=== PATIENT | female | born 1975 | race Caucasian/White ===

== ENCOUNTER 2019-07-24 15:36 | Emergency (ER) | payer OTHER ==
[~2019-07-24 15:36] MED LIST: PANTOPRAZOLE SO40 MG PO
--- OUTSIDE RECORDS SUMMARY | 2019-07-24 15:39 | XMS REPORT ---
Author Author Alvaro Dias Organization [employer] Address Unknown Phone Unavailable Care Team Providers Care Research Quality Assurance Specialist Name Role Phone Alvaro Dias CP Unavailable Allergies, Adverse Reactions, Alerts Substance Reaction Event Type N.K.D.A. 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 pylori] infection 041.86 Oct 18, 2013 Active Problem Bronchial spasms 519.11 January 09, 2014 Active Problem Abdominal pain, epigastric 789.06 Dec 05, 2013 Active Medications Medication Code System Code Instructions Start Date End Date Status Dosage Vitamin D (Ergocalciferol) [facility] 11398872517 [id number] UNIT Orally once per week January 09, 2019 April 09, 2019 Active 1 capsule Propranolol HCl [facility] 46756417433 10 mg Orally twice a day (bid) January 09, 2019 Active 1 tablet on an empty stomach Vital Signs Date/Time: January 09, 2019 Weight 169 lbs Height 62 in Temperature 98.7 F Cardiac Monitoring Heart Rate 61 /min BMI 30.91 Index Results No Known Results Summary Purpose [employer] Submission
--- OUTSIDE RECORDS SUMMARY | 2019-07-24 15:39 | XMS REPORT | Continuity of Care Document ---
Author Author [employer] Address Unknown Phone Unavailable Care Team Providers Care Production Planner Scheduler Name Role Phone [employer] Unavailable Unavailable Problems Problem Status Onset Date Classification Date Reported Comments Source Acute frontal sinusitis Resolved 01/09/2014 Problem 01/10/2019 [id number] Acute upper respiratory infection of multiple sites Resolved 01/09/2014 Problem 01/10/2019 2.16.840.1.356918.4.391.11.30882 Bronchial spasms Resolved 01/09/2014 Problem 01/10/2019 2.16.840.1.835357.4.391.11.61858 Precordial pain Resolved 12/05/2013 Problem 01/10/2019 2.16.840.1.509946.4.391.11.24924 Abdominal pain, epigastric Resolved 12/05/2013 Problem 01/10/2019 2.16.840.1.628576.4.391.11.99127 Helicobacter pylori [H. pylori] infection Resolved 10/18/2013 Problem 01/10/2019 2.16.840.1.935826.4.391.11.14969 Cough Resolved 07/06/2010 Problem 01/10/2019 2.16.840.1.868122.4.391.11.75510 Acute maxillary sinusitis Resolved 07/06/2010 Problem 01/10/2019 2.16.840.1.498619.4.391.11.96375 Bronchitis, acute Resolved 10/28/2009 Problem 01/10/2019 2.16.840.1.551014.4.391.11.63004 Allergic pharyngitis Resolved 10/28/2009 Problem 01/10/2019 2.16.840.1.941829.4.391.11.59887 Anxiety Active Problem 01/10/2019 2.16.840.1.083456.4.391.11.87336 BMI 30.0-30.9,adult Active Diagnosis 01/10/2019 2.16.840.1.093388.4.391.11.34397 Vitamin D deficiency Active Problem 01/10/2019 2.16.840.1.047062.4.391.11.26038 Iron deficiency anemia secondary to blood loss (chronic) Active Problem 01/10/2019 2.16.840.1.612951.4.391.11.66454 Hyperlipemia, mixed Active Problem 01/10/2019 2.16.840.1.171807.4.391.11.50077 High cholesterol Active Problem 01/10/2019 2.16.840.1.528207.4.391.11.75767 Medications Medication Details Route Status Patient Instructions Ordering Provider Order Date Source Vitamin D (Ergocalciferol) 1 capsule Orally Active 39858 UNIT Orally once per week Dias 01/09/2019 2.16.840.1.578162.4.391.11.10000 Propranolol HCl 1 tablet on an empty stomach Orally Active 10 mg Orally twice a day (bid) Dias 01/09/2019 2.16.840.1.829794.4.391.11.00049 Allergies, Adverse Reactions, Alerts Substance Category Reaction Severity Reaction type Status Date Reported Comments Source N.K.D.A. Adverse Reaction Info Not Available Adverse Reaction Active 01/09/2019 2.16.840.1.554117.4.391.11.63672 Immunizations No Data Provided for This Section Results No Data Provided for This Section Pathology Reports No Data Provided for This Section Diagnostic Reports No Data Provided for This Section Consultation Notes No Data Provided for This Section Discharge Summaries No Data Provided for This Section History and Physicals No Data Provided for This Section Vital Signs Vital Sign Value Date Comments Source Weight 169 01/09/2019 2.16.840.1.010224.4.391.11.37303 Height 62 01/09/2019 2.16.840.1.208482.4.391.11.47271 Temperature Oral (F) 98.7 F 01/09/2019 2.16.840.1.729703.4.391.11.53312 Heart Rate 61 01/09/2019 2.16.840.1.112294.4.391.11.01732 Encounters No Data Provided for This Section Procedures No Data Provided for This Section Assessment and Plan No Data Provided for This Section Plan of Care No Data Provided for This Section Social History No Data Provided for This Section Family History No Data Provided for This Section Advance Directives No Data Provided for This Section Functional Status No Data Provided for This Section
--- NOTE | 2019-07-24 16:05 | NUR ---
[facility] GOT APPT AT [facility]
== END 2019-07-24 16:05 | disposition left against medical advice (07) ==
LOC: ER 15:36
DX: R10.30 Lower abdominal pain, unspecified (principal)